=== PATIENT | female | born 1980 | race Caucasian/White ===

== ENCOUNTER 2018-03-07 06:52 | Inpatient (IN) | payer OTHER ==
[~2018-03-07] VITALS: Ht 154.9 cm; Wt 65.0 kg
[2018-03-07] MEDS ORDERED: RINGERS SOLUTION,LACTATED 1,000 ML IV ONE ×2 (07:12→07:14)
[2018-03-07] MEDS ORDERED: CITRIC ACID/SODIUM CITRATE 30 ML SOLUTION UDCUP PO ONE (07:15)
[2018-03-07] MEDS ORDERED: METOCLOPRAMIDE HCL 5 MG/ML 2 ML VIAL IVP ONE (07:15)
[2018-03-07] MEDS ORDERED: PNV1TABL54 PO (07:23)
[2018-03-07 07:24] VITALS: BP 117/74
[2018-03-07 07:50] LABS: BASOPHILS % (AUTO) 0.6 % (0.0-2.0); HEMATOCRIT 30.2 % (36-46); HEMOGLOBIN 10.2 g/dL (12.0-16.0); LYMPHOCYTES # (AUTO) 1.6 K/uL (1.0-4.8); LYMPHOCYTES % (AUTO) 22.8 % (22.0-44.0); MEAN CORPUSCULAR HEMOGLOBIN 29.6 pg (26.0-34.0); MEAN CORPUSCULAR HGB CONC 33.9 G/dL (31.0-37.0); MEAN CORPUSCULAR VOLUME 87 fL (80-100); MONOCYTES # (AUTO) 0.5 K/uL (0.1-1.0); NEUTROPHILS # (AUTO) 4.8 K/uL (1.8-7.7); NEUTROPHILS % (AUTO) 67.6 % (40.0-70.0); PLATELET COUNT (AUTO)-OB 202 K/uL (150-450); RED BLOOD CELL COUNT(AUTO) 3.45 MIL/uL (4.00-5.20); RED CELL DISTRIBUTION WIDTH 15.5 % (11.5-14.5)
[2018-03-07] MEDS ORDERED: MORPHINE SULFATE/PF 0.5 MG/ML 10 ML AMP ONE (08:03)
[2018-03-07] MEDS ORDERED: BUPIVACAINE HCL/DEX-WATER/PF 0.75% 2 ML AMP ONE (08:03)
[2018-03-07] MEDS ORDERED: FentaNYL CITRATE-PF 100 MCG/2 ML VIAL ONE (08:03)
[2018-03-07] MEDS ORDERED: ACETAMINOPHEN 1000 MG/ISO-OSM 100 ML IV ONE (08:03)
[2018-03-07] MEDS ORDERED: DiphenhydrAMINE HCL 50 MG/ML VIAL IVP PRN ×2 (08:45)
[2018-03-07] MEDS ORDERED: NALBUPHINE HCL 10 MG/ML VIAL IVP PRN ×3 (08:45)
[2018-03-07] MEDS ORDERED: MORPHINE SULFATE 10 MG/ML SYRINGE IVP PRN (08:45)
[2018-03-07] MEDS ORDERED: ONDANSETRON HCL 4 MG/2 ML VIAL IVP PRN ×2 (08:45)
[2018-03-07] MEDS ORDERED: DEXAMETHASONE SOD PHOS 4 MG/ML VIAL IVP PRN (08:45)
[2018-03-07] MEDS ORDERED: FentaNYL CITRATE-PF 100 MCG/2 ML VIAL IVP PRN (08:45)
[2018-03-07] MEDS ORDERED: NALOXONE HCL 0.4 MG/ML VIAL IVP PRN (08:45)
[2018-03-07] MEDS ORDERED: GUM MASTIC/STORAX/MSAL/ALCOHOL LIQUID 0.67 ML VIAL TP ONE (09:23)
[2018-03-07] MEDS ORDERED: LANOLIN 7 GM OINTMENT TP PRN (09:45)
[2018-03-07] MEDS ORDERED: ACETAMINOPHEN/CODEINE 300-30 MG TABLET PO PRN (09:45)
[2018-03-07] MEDS: DEXTROSE 5%-0.45% SODIUM CHL 1,000 ML IV SCH ×4 (11:20→22:33)
[2018-03-07] MEDS ORDERED: CefoTEtan DISODIUM 1 GM/VIAL IVP ONE (12:00)
[2018-03-07] MEDS ORDERED: EPHEDrine SULFATE 50 MG/ML VIAL IM ONE (12:00)
[2018-03-07] MEDS ORDERED: OXYTOCIN 10 UNITS/ML VIAL IM ONE (12:00)
[2018-03-07] MEDS ORDERED: 0.9% SODIUM CHLORIDE 10 ML VIAL IVP ONE (12:00)
[2018-03-07] MEDS: ACETAMINOPHEN 1000 MG/ISO-OSM 100 ML IV SCH (17:17)
[2018-03-07] MEDS ORDERED: OXYGEN THERAPY IH SCH ×3 (20:00)
[2018-03-08] MEDS: ACETAMINOPHEN 1000 MG/ISO-OSM 100 ML IV SCH (00:56)
[2018-03-08] MEDS: IBUPROFEN 800 MG TABLET PO SCH ×4 (03:28→22:00)
[2018-03-08 06:17] LABS: BASOPHILS % (AUTO) 0.4 % (0.0-2.0); EOSINOPHILS % (AUTO) 1.1 % (1.0-6.0); HEMATOCRIT 26.3 % (36-46); LYMPHOCYTES # (AUTO) 1.5 K/uL (1.0-4.8); LYMPHOCYTES % (AUTO) 16.9 % (22.0-44.0); MEAN CORPUSCULAR HEMOGLOBIN 29.8 pg (26.0-34.0); MEAN CORPUSCULAR HGB CONC 34.3 G/dL (31.0-37.0); MEAN CORPUSCULAR VOLUME 87 fL (80-100); MONOCYTES # (AUTO) 0.4 K/uL (0.1-1.0); MONOCYTES % (AUTO) 4.3 % (2.0-9.0); NEUTROPHILS # (AUTO) 6.7 K/uL (1.8-7.7); NEUTROPHILS % (AUTO) 77.3 % (40.0-70.0); PLATELET COUNT (AUTO)-OB 191 K/uL (150-450); RED BLOOD CELL COUNT(AUTO) 3.03 MIL/uL (4.00-5.20); RED CELL DISTRIBUTION WIDTH 15.4 % (11.5-14.5)
[2018-03-08] MEDS: MAGNESIUM HYDROXIDE SUSPENSION 30 ML UDCUP PO SCH ×2 (10:14→21:00)
[2018-03-09] MEDS: ACETAMINOPHEN/CODEINE 300-30 MG TABLET PO PRN ×2 (00:56→09:35)
[2018-03-09] MEDS: IBUPROFEN 800 MG TABLET PO SCH (05:44)
[2018-03-09] MEDS ORDERED: IBUP-2071 PO (11:23)
[2018-03-09] MEDS ORDERED: FERR-89 PO (11:24)
[2018-03-09] MEDS ORDERED: FOLI1 PO (11:25)
== END 2018-03-09 13:20 | disposition home or self-care (01) | DRG 785 ==
LOC: 4S 06:52 → PREOBSVTOIN 03-14 07:04
PROVIDERS: ADMIT Obstetrics & Gynecology; ATTEND Obstetrics & Gynecology
PROC: 10D00Z1 Extraction of Products of Conception, Low, Open Approach (ICD-10-PCS; principal; 2018-03-07)
PROC: 0UB70ZZ Excision of Bilateral Fallopian Tubes, Open Approach (ICD-10-PCS; 2018-03-07)
DX: O34.211 Maternal care for low transverse scar from previous cesarean delivery (principal); Z3A.39 39 weeks gestation of pregnancy; Z37.0 Single live birth; Z88.1 Allergy status to other antibiotic agents
CPT/HCPCS: 86850; 86900; 86901; 87081; 88302; J0131; J2270; J2274; J2405; J2590; J2765; J3010; J3490; J7120